=== PATIENT | female | born 1990 | race Two or more races ===

== ENCOUNTER 2021-08-15 19:36 | Emergency (ER) | payer OTHER ==
[2021-08-15 19:39] VITALS: BP 118/64; PULSE 70; TEMP 98.1; BMI 21.1
[2021-08-15] MEDS ORDERED: diazePAM 5 MG TABLET PO ONE (20:06)
[2021-08-15] MEDS ORDERED: KETOROLAC TROMETHAMINE 30 MG/1 ML VIAL IM ONE (20:07)
[2021-08-15] MEDS ORDERED: KETOROLAC TROMETHAMINE 30 MG/1 ML VIAL ONE (20:09)
[2021-08-15] MEDS ORDERED: diazePAM 5 MG TABLET ONE (20:10)
== END 2021-08-15 20:18 | disposition home or self-care (01) ==
LOC: JERFT 19:36
PROC: 3E0233Z Introduction of Anti-inflammatory into Muscle, Percutaneous Approach (ICD-10-PCS; principal; 2021-08-15)
DX: M54.2 Cervicalgia (principal); V89.2XXA Person injured in unspecified motor-vehicle accident, traffic, initial encounter; Y92.9 Unspecified place or not applicable
CPT/HCPCS: 99283-25

== ENCOUNTER 2022-10-01 14:32 | Emergency (ER) | payer OTHER ==
[2022-10-01 14:49] VITALS: BP 104/65; PULSE 77; RESP 20; TEMP 98.2; BMI 21.9
[2022-10-01] MEDS ORDERED: LIDOCAINE 5% TOPICAL PATCH TP ONE (15:01)
[2022-10-01] MEDS ORDERED: ACETAMINOPHEN 500 MG TABLET (FP) PO ONE (15:01)
[2022-10-01] MEDS ORDERED: KETOROLAC TROMETHAMINE 15 MG/ML VIAL IM ONE (15:01)
[2022-10-01] MEDS ORDERED: LIDOCAINE PATCH REMOVAL MC SCH (22:00)
== END 2022-10-01 16:51 | disposition home or self-care (01) ==
LOC: JERFT 14:32
PROC: 3E023GC Introduction of Other Therapeutic Substance into Muscle, Percutaneous Approach (ICD-10-PCS; principal; 2022-10-01)
DX: M54.50 Low back pain, unspecified (principal)
CPT/HCPCS: 72100-TC-FY; 99284-25

== ENCOUNTER → 2023-02-26 | Day surgery (SDC) | payer OTHER | END | disposition home or self-care (01) | LOC: JRADUS-SUR 12:13 | PROVIDERS: ATTEND Obstetrics & Gynecology | PROC: 0H9U3ZX Drainage of Left Breast, Percutaneous Approach, Diagnostic (ICD-10-PCS; principal; 2023-02-26) | DX: D24.2 Benign neoplasm of left breast (principal) | CPT/HCPCS: 19083; 87899; 88305-TC; 88342-TC; A4648 ==

== ENCOUNTER 2023-09-02 04:07 | Day surgery (SDC) | payer OTHER ==
[2023-08-28 16:49] VITALS: BMI 21.2
[~2023-09-02 04:07] MED LIST: LIDOCAINE HCL 1%, 10 MG/ML (20ML VIAL) INF ONE
[2023-09-02] MEDS ORDERED: LIDOCAINE HCL 1%, 10 MG/ML (20ML VIAL) ONE (10:13)
[2023-09-02] MEDS ORDERED: MIDAZOLAM HCL 2 MG/2 ML SINGLE DOSE VIAL ONE ×2 (10:37→10:39)
[2023-09-02] MEDS ORDERED: ceFAZolin SODIUM 1 GM VIAL IVPB ONE (10:46)
[2023-09-02] MEDS ORDERED: FENTANYL CITRATE/PF 50 MCG/ML VIAL ONE ×2 (10:47→10:50)
[2023-09-02] MEDS ORDERED: LIDOCAINE HCL 1%, 10 MG/ML (20ML VIAL) INF ONE (10:52)
[2023-09-02] MEDS ORDERED: PROPOFOL 40 ML ONE (10:52)
[2023-09-02] MEDS ORDERED: ACETAMINOPHEN INJECTION 100 ML IVPB ONE (10:58)
[2023-09-02] MEDS ORDERED: ONDANSETRON 4 MG/2 ML VIAL IVPUSH PRN (12:48)
[2023-09-02] MEDS ORDERED: oxyCODONE HCL 5 MG TABLET PO PRN (12:48)
[2023-09-02] MEDS ORDERED: LACTATED RINGERS SOLUTION 1,000 ML IV SCH (13:00)
[2023-09-02 13:34] VITALS: RESP 18
[2023-09-02 13:38] VITALS: BP 110/70; PULSE 75; TEMP 97.9
== END 2023-09-02 13:07 | disposition home or self-care (01) ==
LOC: JASU-SURG 04:07
PROVIDERS: ATTEND Surgery
PROC: 0HBU0ZX Excision of Left Breast, Open Approach, Diagnostic (ICD-10-PCS; principal; 2023-09-02 10:00)
DX: D24.2 Benign neoplasm of left breast (principal)
CPT/HCPCS: 19281; 76098-TC-FY; 81025; 88307-TC; 94760; A4648

== ENCOUNTER 2023-09-26 21:37 | Emergency (ER) | payer OTHER ==
[2023-09-26 21:44] VITALS: PULSE 88; RESP 18; TEMP 98.5; BMI 20.9
[2023-09-26] MEDS ORDERED: ONDANSETRON *ODT* 4 MG TABLET SL ONE (23:00)
[2023-09-26] MEDS ORDERED: ONDANSETRON *ODT* 4 MG TABLET ONE (23:16)
[2023-09-26 23:21] LABS: EPI CELLS 28 /uL (0-25.1); HYALINE CASTS 3 /uL (0-3.1); URINE APPEARANCE CLOUDY; URINE BILIRUBIN 1+ (NEGATIVE); URINE COLOR ORANGE; URINE GLUCOSE (UA) NEGATIVE (NEGATIVE); URINE KETONE 3+ (NEGATIVE); URINE LEUK ESTERASE 1+ (NEGATIVE); URINE NITRITE POSITIVE (NEGATIVE); URINE PROTEIN 2+ (NEGATIVE); URINE WBC 23 /uL (0-25.8)
[2023-09-26] MEDS ORDERED: CEPHALEXIN MONOHYDRATE 500 MG CAPSULE (UD) PO ONE (23:52)
[2023-09-26 23:56] LABS: URINE BACTERIA 681.8 /uL (0-1359); URINE RBC 65.2 /uL (0-23.9); YEAST NONE SEEN (NEGATIVE)
[2023-09-26] MEDS ORDERED: CEPHALEXIN MONOHYDRATE 500 MG CAPSULE (UD) ONE (23:56)
[2023-09-26 23:58] VITALS: BP 118/70
== END 2023-09-26 23:58 | disposition home or self-care (01) ==
LOC: JER 21:37
DX: R30.0 Dysuria (principal); N39.0 Urinary tract infection, site not specified; R11.2 Nausea with vomiting, unspecified
CPT/HCPCS: 81003; 84703; 87086; 99283-25; Q0162